=== PATIENT | female | born 1980 | race Caucasian/White ===

== ENCOUNTER 2016-12-17 11:17 | Emergency (ER) | payer BC ==
[~2016-12-17] VITALS: Ht 167.6 cm; Wt 66.0 kg
[2016-12-17 11:20] VITALS: BP 130/90
[2016-12-17] MEDS ORDERED: ENOXAPARIN 60 MG/0.6 ML SQ ONE (13:00)
[2016-12-17] MEDS ORDERED: PLEASE ENTER ALLERGIES MC SCH ×2 (13:00)
[2016-12-17] MEDS ORDERED: ENOXAPARIN 60 MG/0.6 ML ONE (13:10)
== END 2016-12-17 13:32 | disposition home or self-care (01) ==
LOC: ED 13:20
DX: L03.116 Cellulitis of left lower limb (principal); I82.431 Acute embolism and thrombosis of right popliteal vein
CPT/HCPCS: 73610; 93971; 96372; 99284; J1650

== ENCOUNTER 2018-06-13 18:09 | Emergency (ER) | payer BC, MEDICAID ==
[~2018-06-13] VITALS: Ht 165.1 cm; Wt 70.0 kg
[2018-06-13 18:23] VITALS: BP 136/87
--- NOTE | 2018-06-13 19:56 | NUR ---
Patient/Caregiver given discharge instructions and they have confirmed that they understand the instructions. Patient ambulatory with steady gait.
== END 2018-06-13 19:57 | disposition home or self-care (01) ==
LOC: ED 19:14
DX: F90.9 Attention-deficit hyperactivity disorder, unspecified type (principal); Z76.0 Encounter for issue of repeat prescription; Z86.718 Personal history of other venous thrombosis and embolism
CPT/HCPCS: 99281

== ENCOUNTER 2018-11-23 12:48 | Emergency (ER) | payer MEDICAID, OTHER ==
[~2018-11-23] VITALS: Ht 165.1 cm; Wt 63.0 kg
[2018-11-23 14:22] VITALS: BP 134/88
== END 2018-11-23 14:58 | disposition home or self-care (01) ==
LOC: ED 14:46
DX: R60.0 Localized edema (principal); F90.9 Attention-deficit hyperactivity disorder, unspecified type; F17.200 Nicotine dependence, unspecified, uncomplicated; Z86.718 Personal history of other venous thrombosis and embolism; M79.604 Pain in right leg
CPT/HCPCS: 93005; 99284